=== PATIENT | male | born 1960 | race Caucasian/White ===

== ENCOUNTER 2023-05-29 09:05 | Inpatient (IN) ==
[2023-05-29] MEDS ORDERED: traZODone HCL 50 MG TABLET PO PRN (11:27)
[2023-05-29] MEDS ORDERED: ONDANSETRON 4 MG/2 ML VIAL IV PRN (11:27)
[2023-05-29] MEDS ORDERED: LORazepam 0.5 MG TABLET PO PRN (11:32)
[2023-05-29] MEDS: PIPERACILLIN SODIUM/TAZOBACTAM 3.375 GM in DEXTROSE 5% IN WATER 50 ML IV SCH ×3 (12:33→23:18)
[2023-05-29] MEDS: 0.9 % SODIUM CHLORIDE 1,000 ML IV SCH ×2 (12:34→22:38)
[2023-05-29 12:48] LABS: Basophils # (Auto) 0.03 K/mcL (0.00-0.30); Basophils % (Auto) 0.5 % (0.0-2.0); Eosinophils # (Auto) 0.14 K/mcL (0.00-0.70); Eosinophils % (Auto) 2.2 % (0.0-7.0); Hematocrit 39.3 % (40.1-51.0); Hemoglobin 12.9 g/dL (13.7-17.5); Lymphocytes # (Auto) 1.24 K/mcL (1.50-4.80); Lymphocytes % (Auto) 19.6 % (15.5-49.0); Mean Cell Volume 96.6 fL (80.0-100.0); Mean Corpuscular HGB Conc 32.8 g/dL (31.0-36.0); Mean Platelet Volume 11.1 fL (8.8-12.5); Monocytes # (Auto) 0.61 K/mcL (0.10-0.90); Monocytes % (Auto) 9.6 % (1.0-12.0); Neutrophils % (Auto) 67.8 % (38.0-78.0); Platelet Count 149 K/mcL (140-440); RBC 4.07 M/mcL (4.63-6.08); Red Cell Distribution Width 12.9 % (11.5-14.5); WBC 6.3 K/mcL (4.5-11.0)
[2023-05-29 13:02] LABS: Prothrombin Time 13.6 sec (11.9-14.5)
[2023-05-29 13:15] LABS: ALT/SGPT 12 U/L (<40); AST/SGOT 25 U/L (<40); Albumin/Globulin Ratio 1.4 (1.0-2.3); Alkaline Phosphatase 75 U/L (39-117); Bilirubin,Direct 0.2 mg/dL (<0.3); Bilirubin,Total 0.6 mg/dL (0.1-1.0); Blood Urea Nitrogen 14 mg/dL (8-23); C-Reactive Protein < 0.30 mg/dL (0.03-0.80); Calcium 9.4 mg/dL (8.6-10.4); Carbon Dioxide 29 mmol/L (22-30); Chloride 101 mmol/L (96-108); Globulin 2.8 gm/dL (2.2-3.7); Glomerular Filtration Rate 106; Glucose 99 mg/dL (70-105); Lactate Dehydrogenase 213 U/L (135-225); Triglycerides 65 mg/dL (<150); Uric Acid 3.4 mg/dL (2.5-8.0)
[2023-05-29] MEDS: 0.9 % SODIUM CHLORIDE 10 ML SYRINGE IV SCH ×3 (14:58→20:38)
[2023-05-29] MEDS: oxyCODONE IR 5 MG TABLET PO PRN (17:10)
[2023-05-29] MEDS: OMEPRAZOLE 20 MG CAPSULE PO SCH (17:11)
[2023-05-29] MEDS: SOTALOL 80 MG TABLET PO SCH (20:33)
[2023-05-29] MEDS: SENNOSIDES 1 TABLET PO SCH (20:33)
[2023-05-29] MEDS: DOCUSATE SODIUM 100 MG CAPSULE PO SCH (20:33)
[2023-05-29] MEDS: ZOLPIDEM 5 MG TABLET PO PRN (22:38)
[2023-05-30] MEDS: 0.9 % SODIUM CHLORIDE 10 ML SYRINGE IV SCH ×3 (04:51→20:50)
[2023-05-30] MEDS: PIPERACILLIN SODIUM/TAZOBACTAM 3.375 GM in DEXTROSE 5% IN WATER 50 ML IV SCH ×4 (05:25→23:37)
[2023-05-30] MEDS: DOCUSATE SODIUM 100 MG CAPSULE PO SCH ×2 (09:21→20:55)
[2023-05-30] MEDS: LEVOTHYROXINE 100 MCG TABLET PO SCH (09:21)
[2023-05-30] MEDS: OMEPRAZOLE 20 MG CAPSULE PO SCH ×2 (09:21→17:29)
[2023-05-30] MEDS: SOTALOL 80 MG TABLET PO SCH ×2 (09:21→20:55)
[2023-05-30] MEDS: ESCITALOPRAM 10 MG TABLET PO SCH (09:21)
[2023-05-30] MEDS: amLODIPine 10 MG TABLET PO SCH (09:22)
[2023-05-30] MEDS: 0.9 % SODIUM CHLORIDE 1,000 ML IV SCH ×2 (09:22→17:29)
[2023-05-30] MEDS ORDERED: PROPOFOL 200 MG/20 ML VIAL IV ONE (14:35)
[2023-05-30] MEDS ORDERED: MIDAZOLAM 5 MG/5 ML VIAL ONE (14:35)
[2023-05-30] MEDS ORDERED: DEXAMETHASONE 10 MG/ML VIAL ONE (14:35)
[2023-05-30] MEDS ORDERED: ONDANSETRON 4 MG/2 ML VIAL ONE (14:35)
[2023-05-30] MEDS ORDERED: LIDOCAINE HCL/PF 100 MG/5 ML SYRINGE IV ONE (14:35)
[2023-05-30] MEDS ORDERED: PROMETHAZINE 25 MG/ML VIAL IV PRN (15:27)
[2023-05-30] MEDS ORDERED: fentaNYL 100 MCG/2 ML VIAL IV PRN (15:27)
[2023-05-30] MEDS ORDERED: IPRATROPIUM/ALBUTEROL 3 ML AMPUL.NEB NEB PRN (15:27)
[2023-05-30] MEDS ORDERED: NALOXONE HCL 0.4 MG/ML VIAL IV PRN (15:27)
[2023-05-30] MEDS ORDERED: LACTATED RINGERS 250 ML IV PRN (15:27)
[2023-05-30] MEDS ORDERED: METHOCARBAMOL 1,000 MG/10 ML VIAL IV PRN (15:27)
[2023-05-30] MEDS ORDERED: HYDROmorphone 0.5 MG/0.5 ML SYRINGE IV PRN (15:27)
[2023-05-30] MEDS: oxyCODONE IR 5 MG TABLET PO PRN (20:55)
[2023-05-30] MEDS: ZOLPIDEM 5 MG TABLET PO PRN (20:55)
[2023-05-30] MEDS: SENNOSIDES 1 TABLET PO SCH (20:55)
[2023-05-31] MEDS: 0.9 % SODIUM CHLORIDE 1,000 ML IV SCH ×3 (03:51→18:16)
[2023-05-31] MEDS: 0.9 % SODIUM CHLORIDE 10 ML SYRINGE IV SCH ×3 (04:55→20:56)
[2023-05-31] MEDS: PIPERACILLIN SODIUM/TAZOBACTAM 3.375 GM in DEXTROSE 5% IN WATER 50 ML IV SCH ×4 (05:40→23:32)
[2023-05-31] MEDS: OMEPRAZOLE 20 MG CAPSULE PO SCH ×2 (10:47→18:09)
[2023-05-31] MEDS: amLODIPine 10 MG TABLET PO SCH (10:48)
[2023-05-31] MEDS: oxyCODONE IR 5 MG TABLET PO PRN ×2 (10:48→20:55)
[2023-05-31] MEDS: SOTALOL 80 MG TABLET PO SCH ×2 (10:48→20:55)
[2023-05-31] MEDS: DOCUSATE SODIUM 100 MG CAPSULE PO SCH ×2 (10:48→20:55)
[2023-05-31] MEDS: ESCITALOPRAM 10 MG TABLET PO SCH (10:48)
[2023-05-31] MEDS: LEVOTHYROXINE 100 MCG TABLET PO SCH (10:49)
[2023-05-31] MEDS ORDERED: LORazepam 2 MG/ML VIAL IV PRN (14:21)
[2023-05-31] MEDS: SENNOSIDES 1 TABLET PO SCH (20:55)
[2023-05-31] MEDS: ZOLPIDEM 5 MG TABLET PO PRN (23:32)
[2023-05-31] MEDS: HYDROmorphone 1 MG/ML SYRINGE IV PRN (23:32)
[2023-06-01] MEDS: 0.9 % SODIUM CHLORIDE 1,000 ML IV SCH ×3 (00:34→10:51)
[2023-06-01] MEDS: PIPERACILLIN SODIUM/TAZOBACTAM 3.375 GM in DEXTROSE 5% IN WATER 50 ML IV SCH ×2 (05:22→11:35)
[2023-06-01] MEDS: 0.9 % SODIUM CHLORIDE 10 ML SYRINGE IV SCH ×2 (05:22→15:07)
[2023-06-01] MEDS ORDERED: LEVOTHYROXINE 100 MCG VIAL IV SCH (07:30)
[2023-06-01] MEDS: LEVOTHYROXINE 100 MCG TABLET PO SCH (07:30)
[2023-06-01] MEDS: OMEPRAZOLE 20 MG CAPSULE PO SCH (07:30)
[2023-06-01] MEDS: ESCITALOPRAM 10 MG TABLET PO SCH (08:44)
[2023-06-01] MEDS: SOTALOL 80 MG TABLET PO SCH (08:44)
[2023-06-01] MEDS: amLODIPine 10 MG TABLET PO SCH (08:44)
[2023-06-01] MEDS: DOCUSATE SODIUM 100 MG CAPSULE PO SCH (08:44)
[2023-06-01] MEDS ORDERED: amLODIPine 10 MG TABLET PO SCH (09:00)
[2023-06-01] MEDS: HYDROmorphone 1 MG/ML SYRINGE IV PRN ×2 (10:22→17:10)
== END 2023-06-01 17:37 | disposition home or self-care (01) | DRG 580 ==
LOC: MEDSUR 09:27
PROVIDERS: ADMIT Family Medicine Adult Medicine; ATTEND Family Medicine Adult Medicine